=== PATIENT | male | born 1940 | race African-American/Black ===

== ENCOUNTER 2016-06-28 07:43 | Emergency (ER) | payer OTHER ==
[~2016-06-28 07:43] MED LIST: ALBUTEROL0.63 MG/3 INH; LIALDA1.2 GM PO; LIOR10 PO; MONODOX100 MG PO; PRILOSEC40 MG PO; PRIN10 PO; PROAIR HFA INH; PROVENTSOL INH; SPIRIVA INH; STERAPRED DS10 MG; SYMBICORT 160/41 INH INH; UROXATRAL PO; VIB100 PO; VOLT75 PO
== END 2016-06-28 08:34 | disposition home or self-care (01) ==
LOC: ER 07:43
DX: I10 Essential (primary) hypertension (principal); J44.9 Chronic obstructive pulmonary disease, unspecified; Z85.46 Personal history of malignant neoplasm of prostate; Z88.8 Allergy status to other drugs, medicaments and biological substances; Z79.899 Other long term (current) drug therapy
CPT/HCPCS: 93005; 99283